=== PATIENT | female | born 2000 | race American Indian/Alaskan Native ===

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

== ENCOUNTER 2021-01-06 23:13 | Emergency (ER) | payer OTHER, MEDICAID ==
[2021-01-07 00:22] VITALS: BP 120/72
[2021-01-07] MEDS ORDERED: IBUPROFEN 800 MG TAB PO ONE (04:34)
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
== END 2021-01-07 05:20 | disposition home or self-care (01) ==
LOC: ED 23:13
DX: S39.012A Strain of muscle, fascia and tendon of lower back, initial encounter (principal); J45.909 Unspecified asthma, uncomplicated; Z79.1 Long term (current) use of non-steroidal anti-inflammatories (NSAID); Z79.899 Other long term (current) drug therapy; V49.59XA Passenger injured in collision with other motor vehicles in traffic accident, initial encounter; Y93.89 Activity, other specified; Y92.410 Unspecified street and highway as the place of occurrence of the external cause; Y99.8 Other external cause status
CPT/HCPCS: 99282